=== PATIENT | male | born 1965 | race Caucasian/White ===

== ENCOUNTER 2019-03-25 17:03 | Emergency (ER) | payer SELFPAY ==
[~2019-03-25] VITALS: Wt 80.0 kg
[2019-03-25 19:23] VITALS: BP 175/81; PULSE 83; RESP 17
[2019-03-25] MEDS ORDERED: LORAZEPAM 1 MG TAB PO ONE (19:30)
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
[2019-03-25] MEDS ORDERED: NAPR-985 PO (20:32)
[2019-03-25] MEDS ORDERED: HYDR-4011 PO (20:32)
== END 2019-03-25 21:45 ==
LOC: FTE 17:03
DX: S62.616A Displaced fracture of proximal phalanx of right little finger, initial encounter for closed fracture (principal); S02.81XA Fracture of other specified skull and facial bones, right side, initial encounter for closed fracture; S29.001A Unspecified injury of muscle and tendon of front wall of thorax, initial encounter; R07.9 Chest pain, unspecified; Y08.89XA Assault by other specified means, initial encounter
CPT/HCPCS: 70480; 71045; 80048; 84484; 85025; 93005